=== PATIENT | male | born 1945 | race Caucasian/White ===

== ENCOUNTER 2019-08-12 12:07 | Emergency (ER) | payer MEDICARE, OTHER ==
[~2019-08-12] VITALS: Ht 177.8 cm; Wt 95.0 kg
[~2019-08-12 12:07] MED LIST: ALBU18HF2 INH; ASPI-41 PO; CHLO25TA2 PO; DOCU100C40 PO; HYDR-3972 PO; METO25TA6 PO; PHEN100C12 PO; SIMV-45 PO; SPIIN INH; SPIR50TA5 PO; UREA198C TOP
[2019-08-12 12:21] VITALS: BP 130/81
[2019-08-12] MEDS ORDERED: ketorolac trometh. 30mg/ml inj. IM STA (13:14)
[2019-08-12] MEDS ORDERED: TETanus/Pertussis (Acell)/Diphther VAC/PF (Tdap-Adult) 0.5ml syringe IMVAC ONE (13:15)
== END 2019-08-12 13:56 | disposition home or self-care (01) ==
LOC: ER 12:08
DX: S60.511A Abrasion of right hand, initial encounter (principal); I10 Essential (primary) hypertension; J44.9 Chronic obstructive pulmonary disease, unspecified; Z98.890 Other specified postprocedural states; Z79.82 Long term (current) use of aspirin; Z79.899 Other long term (current) drug therapy; W23.0XXA Caught, crushed, jammed, or pinched between moving objects, initial encounter; Y93.89 Activity, other specified; Y92.89 Other specified places as the place of occurrence of the external cause; Y99.9 Unspecified external cause status
CPT/HCPCS: 73130; 90471; 90715; 96372; 99283; J1885

== ENCOUNTER 2023-04-11 16:38 | Inpatient (IN) | payer OTHER, MEDICARE ==
[~2023-04-11] VITALS: Ht 269.2 cm; Wt 110.0 kg
[~2023-04-11 16:38] MED LIST changes: +LOP25T PO; +MEROPENEM 1GM/NS 100ML IVPB 100 ML IV ONE; -METO25TA6 PO
[2023-04-11 17:12] LABS: BASOPHILS % (AUTO) 0.2 % (0-1); EOSINOPHILS % (AUTO) 0 % (0-6); HEMATOCRIT 39.5 % (42.0-52.0); HEMOGLOBIN 13.3 g/dl (14.0-17.9); LYMPHOCYTES # (AUTO) 0.8 X10'3 (1.1-4.8); LYMPHOCYTES % (AUTO) 4.6 % (21-51); MEAN CORPUSCULAR HEMOGLOBIN 29.5 PG (27.0-31.0); MEAN CORPUSCULAR HGB CONC 33.7 g/dL (33.0-36.5); MEAN CORPUSCULAR VOLUME 87.6 FL (78-98); MEAN PLATELET VOLUME 6.7 FL (7.4-10.4); MONOCYTES # (AUTO) 1.4 X10'3 (0-0.9); MONOCYTES % (AUTO) 8.1 % (2-12); NEUTROPHILS # (AUTO) 15.5 X10'3 (1.8-7.7); NEUTROPHILS % (AUTO) 87.1 % (42-75); PLATELET COUNT 424 X10'3 (140-440); RED BLOOD COUNT 4.51 X10'6 (4.70-6.10); RED CELL DISTRIBUTION WIDTH 17.3 % (11.5-14.5); WHITE BLOOD COUNT 17.8 X10'3 (4.5-11.0)
[2023-04-11 17:18] LABS: ALANINE AMINOTRANSFERASE 13 U/L (12-78); ALBUMIN 2.2 G/DL (3.4-5.0); ALBUMIN/GLOBULIN RATIO 0.4 (1.1-1.5); ALKALINE PHOSPHATASE 64 IU/L (46-116); ANION GAP 6 (8-16); ASPARTATE AMINO TRANSFERASE 24 U/L (10-37); BILIRUBIN,TOTAL 1.4 MG/DL (0.1-1.0); BLOOD UREA NITROGEN 30 MG/DL (7-18); BUN/CREATININE RATIO 21.9 (10.0-20.0); CALCIUM 9.2 MG/DL (8.5-10.1); CHLORIDE 95 MMOL/L (99-107); CREATININE 1.37 MG/DL (0.60-1.10); GLUCOSE 125 MG/DL (70-104); POTASSIUM 3.4 MMOL/L (3.5-5.1); SODIUM 130 MMOL/L (135-145); TOTAL PROTEIN 7.6 G/DL (6.4-8.2); eCRCL 48 ML/MIN; eGFR 51 ML/MIN
[2023-04-11 17:25] LABS: PRO BRAIN NATRIURETIC PEPTIDE 3555 PG/ML (0-450)
[2023-04-11] MEDS ORDERED: acetaminophen 325mg tablet PO ONE ×2 (17:35→18:00)
[2023-04-11] MEDS ORDERED: LIDOcaine 2% 10ml TOPICAL JELLY (Urojet) TP ONE (17:35)
[2023-04-11] MEDS ORDERED: LidoCAINE 2% Topical Jelly 11mL syringe TOP ONE (17:40)
[2023-04-11] MEDS ORDERED: iohexol 350MG/ML 100ml bottle IV ONE (17:42)
--- NOTE | 2023-04-11 17:47 | NUR ---
PICS TAKEN OF WOUNDS TO BLE AND PLACED IN CHART. WOUND CARE CONSULT ORD.
--- NOTE | 2023-04-11 17:47 | NUR ---
PER DR MATTSON RN TO ORD 1GM TYLENOL PO AND PAYTON WITH BLADDER SCAN P/T PLACEMENT.
[2023-04-11 17:55] LABS: AMYLASE 21 U/L (25-115); LIPASE < 50 U/L (73-393)
[2023-04-11 17:59] LABS: APTT 29 SECONDS (22-32); INR 1.1 INR; PROTHROMBIN TIME 11.9 SECONDS (9.0-12.0)
[2023-04-11 18:05] LABS: ABG BASE EXCESS 1.9 mmol/L (-2.0-2.0); ABG HCO3 23.6 mmol/L (22.0-26.0); ABG OXYGEN SATURATION 97.4 % (94-97); ABG PCO2 (T) 30.8 mmHg (35.0-48.0); ABG PH (T) 7.507 (7.340-7.440); ABG PO2 (T) 88.8 mmHg (75.0-100.0); ALLEN'S TEST POSITIVE; FCOHb 1.3 % (0.0-3.9); FHHb 2.6 % (0.0-5.0); FLOW 4 L/min; FMetHb 0.1 % (0.0-1.5); MODE NC; PATIENT TEMPERATURE 38.4
[2023-04-11 18:36] LABS: BILIRUBIN,URINE SMALL (Neg); CLARITY,URINE SLIGHTLY CLOUDY (Clear); GLUCOSE, URINE 100 mg/dl (Neg); KETONES,URINE NEGATIVE (Neg); LEUKOCYTE ESTERASE ,URINE NEGATIVE (Neg); NITRITES, URINE NEGATIVE (Neg); OCCULT BLOOD,URINE MODERATE (Neg); PROTEIN,URINE 100 mg/dl (Neg); UROBILINOGEN,URINE >=8.0 E.U/dL (0.2-1.0)
[2023-04-11 18:37] LABS: COLOR,URINE DARK YELLOW (Yellow); UA COLLECTION TYPE FOLEY CATH
[2023-04-11 18:45] LABS: BACTERIA,URINE FEW /HPF (Neg); WBC,URINE 0-4 /HPF (0-4)
[2023-04-11 18:46] LABS: MUCUS STRANDS FEW /LPF (Neg); SQUAMOUS EPITHELIAL CELL,UR FEW /LPF (FEW); TRANSITIONAL EPI CELLS,URINE FEW /HPF
[2023-04-11] MEDS ORDERED: MEROPENEM 1GM/NS 100ML IVPB 100 ML IV ONE (19:45)
[2023-04-11] MEDS ORDERED: furosemide 10 MG/1 ML 10ml inj IV ONE (19:55)
[2023-04-11] MEDS ORDERED: methylPREDNISolone sod succ 125mg/2ml vial IV ONE (20:00)
[2023-04-11] MEDS ORDERED: potassium Cl 20 mEq SR tablet PO PRN (21:20)
[2023-04-11] MEDS ORDERED: magnesium hydroxide 30ml (MOM) UD suspension PO PRN (21:20)
[2023-04-11] MEDS ORDERED: mag hydrox/Alum hydrox/simeth 30ml oral suspension PO PRN (21:20)
[2023-04-11] MEDS ORDERED: magnesium 4gm in 100ml NS 100 ML IV PRN (21:20)
[2023-04-11] MEDS ORDERED: magnesium Cl slow-release 64mg tablet PO PRN (21:20)
[2023-04-11] MEDS ORDERED: ondansetron/PF 4mg/2ml inj IV PRN (21:20)
[2023-04-11] MEDS ORDERED: magnesium 2GM in 50ml NS 50 ML IV PRN (21:20)
[2023-04-11] MEDS ORDERED: acetaminophen 325mg tablet PO PRN (21:20)
[2023-04-11] MEDS ORDERED: potassium Cl 40MEQ/1/2NS 520ml 520 ML IV PRN (21:20)
[2023-04-11] MEDS ORDERED: PERFLUTREN PROTEIN-A MICROSPHR (Optison) 0.22 MG/ML 3ML VIAL IV PRN (21:20)
[2023-04-11] MEDS ORDERED: albuterol 2.5 MG/3 ML nebule NEB PRN (21:25)
[2023-04-11] MEDS: phenytoin sod ER 100mg capsule PO SCH (21:40)
[2023-04-11 22:02] LABS: PHENYTOIN (DILANTIN) 7.3 UG/ML (10.0-20.0)
[2023-04-11] MEDS: HYDROcodone/acetaminophen 5mg/325mg tablet PO PRN (22:18)
[2023-04-12] VITALS (7 sets, daily range): BP systolic 111–120; BP diastolic 55–87; PULSE 85–99; RESP 16–20; TEMP 97.5–98; O2SAT 93–98
[2023-04-12] MEDS: HYDROcodone/acetaminophen 5mg/325mg tablet PO PRN ×4 (02:58→20:37)
[2023-04-12 06:55] LABS: BASOPHILS % (AUTO) 0.1 % (0-1); EOSINOPHILS % (AUTO) 0 % (0-6); HEMATOCRIT 37.5 % (42.0-52.0); HEMOGLOBIN 12.8 g/dl (14.0-17.9); LYMPHOCYTES # (AUTO) 0.4 X10'3 (1.1-4.8); LYMPHOCYTES % (AUTO) 2.5 % (21-51); MEAN CORPUSCULAR HEMOGLOBIN 30.1 PG (27.0-31.0); MEAN CORPUSCULAR VOLUME 88.5 FL (78-98); MEAN PLATELET VOLUME 6.7 FL (7.4-10.4); MONOCYTES # (AUTO) 1.3 X10'3 (0-0.9); MONOCYTES % (AUTO) 7.3 % (2-12); NEUTROPHILS # (AUTO) 15.5 X10'3 (1.8-7.7); NEUTROPHILS % (AUTO) 90.1 % (42-75); PLATELET COUNT 376 X10'3 (140-440); RED BLOOD COUNT 4.23 X10'6 (4.70-6.10); RED CELL DISTRIBUTION WIDTH 17.5 % (11.5-14.5); WHITE BLOOD COUNT 17.2 X10'3 (4.5-11.0)
[2023-04-12 07:29] LABS: ALANINE AMINOTRANSFERASE 13 U/L (12-78); ALBUMIN 1.8 G/DL (3.4-5.0); ALBUMIN/GLOBULIN RATIO 0.4 (1.1-1.5); ALKALINE PHOSPHATASE 54 IU/L (46-116); ANION GAP 5 (8-16); ASPARTATE AMINO TRANSFERASE 29 U/L (10-37); BLOOD UREA NITROGEN 28 MG/DL (7-18); BUN/CREATININE RATIO 21.9 (10.0-20.0); CALCIUM 8.7 MG/DL (8.5-10.1); CHLORIDE 97 MMOL/L (99-107); CREATININE 1.28 MG/DL (0.60-1.10); GLUCOSE 159 MG/DL (70-104); MAGNESIUM 2.1 MG/DL (1.5-2.4); POTASSIUM 3.7 MMOL/L (3.5-5.1); SODIUM 132 MMOL/L (135-145); TOTAL CARBON DIOXIDE 30.1 MMOL/L (24-32); TOTAL PROTEIN 6.8 G/DL (6.4-8.2); eCRCL 78 ML/MIN; eGFR 55 ML/MIN
[2023-04-12] MEDS: K and/or MAG REPLACEMENT MC SCH ×2 (08:00→20:00)
[2023-04-12] MEDS ORDERED: metoprolol tartrate 50mg tablet PO SCH (08:00)
[2023-04-12] MEDS: furosemide 10 MG/1 ML 10ml inj IV SCH ×2 (08:30→20:38)
[2023-04-12] MEDS: docusate sod 100mg capsule PO SCH ×2 (08:31→20:31)
[2023-04-12] MEDS: heparin, porcine 5000 units/ml vial SQ SCH ×2 (08:31→20:39)
[2023-04-12] MEDS: CefTRIAXone/D5W-Rocephin 1gm 50 ML IV SCH (08:31)
[2023-04-12] MEDS: metoprolol tartrate 25mg tablet PO SCH ×2 (10:15→20:36)
[2023-04-12] MEDS ORDERED: ATOR40TA PO (12:34)
[2023-04-12] MEDS ORDERED: ASPI-611 PO (12:34)
[2023-04-12] MEDS ORDERED: LOP25T PO (12:35)
--- NOTE | 2023-04-12 14:55 | NUR ---
Noted pt with a low BMI of 15.2 using wt of 110 kg which is not scaled. Patient's height has gone from 70" to 96" to 106" this admit. Per ht hx in EMR pt 70-71", therefore BMI is actually 34-35 IF current documented wt is accurate. Addendum: 04/12/23 at [address] Amended: Links added.
--- NOTE | 2023-04-12 16:01 | NUR ---
Message: ROOM [id number] JAREKGTBRANDY FROM ED NEEDS SOMETHING FOR PAIN HAD ONE NORCO IN THE ED PLEASE ORDER SOMETHING MORE FOR HIM HIS LEGS ARE EXCRUCIATING THX - NOMI [id number]
--- NOTE | 2023-04-12 16:28 | NUR ---
PRESSURE ULCER EDUCATION: DEFINITION: A pressure ulcer is an area of skin that breaks down when you stay in one position too long. The constant pressure against the skin reduces the blood flow to that area and the affected tissue dies. CAUSES: "Being bedridden or in a wheelchair "Fragile skin "Having a chronic condition, such as diabetes or vascular disease "Inability to move certain parts of your body without assistance "Older age "Incontinence of urine or stool SYMPTOMS: "A reddened area that DOES NOT turn white when pressed on - this can be the beginning of a pressure ulcer "A blister, deep sore or a crater - these can be advanced pressure ulcers FIRST AID: "Relieve the pressure on this area "Keep the area clean and dry "Call your primary doctor if you see any of the above symptoms "DO NOT massage the area "DO NOT use a donut shaped or ring shaped pillow- these actually interfere with the blood flow and cause complications PREVENTION: "Check for pressure ulcers everyday "Change position at least every two hours to relieve pressure "Use items that help relieve pressure- pillows, sheepskin, foam padding, and powders. "Keep skin clean and dry "Eat healthy well balanced meals "Exercise daily IF YOU SEE ANY OF THESE SYMPTOMS WHILE IN THE HOSPITAL - TELL YOUR NURSE IMMEDIATELY. IF YOU SEE ANY OF THESE SYMPTOMS WHILE AT HOME OR HAVE ANY QUESTIONS OR CONCERNS ABOUT PRESSURE ULCERS - CALL YOUR PRIMARY DOCTOR IMMEDIATELY. Addendum: 04/12/23 at 1628 by Jessenia Kramer LVN Amended: Links added.
--- NOTE | 2023-04-12 16:39 | NUR ---
Message: ROOM [id number] CONCHIS FROM ED NEEDS SOMETHING FOR PAIN HE HAS THE LOWER EXT WOUNDS AND WOUND CARE ATTENDED TO THOSE CAUSING ALOT OF PAIN - HE HAD NORCO IN ED - PLEASE ADVISE - SECOND NOTIFICATION - NOMI TELE [id number]
--- NOTE | 2023-04-12 18:09 | NUR ---
Patient in room PCU 3017. I have received report from Marii MOSQUERA and had the opportunity to ask questions and assume patient care.
[2023-04-12] MEDS: atorvastatin 20mg tablet PO SCH (20:37)
[2023-04-12] MEDS: phenytoin sod ER 100mg capsule PO SCH (20:40)
[2023-04-13] VITALS (18 sets, daily range): BP systolic 95–114; BP diastolic 53–60; PULSE 69–95; RESP 14–18; TEMP 97.5–98.4; O2SAT 89–99
--- NOTE | 2023-04-13 00:47 | NUR ---
Patient medicated for pain x1 with good effect. Requested Rt tmt for SOB. Appears stable at this time. report given to Marii MOSQUERA
[2023-04-13] MEDS: HYDROcodone/acetaminophen 5mg/325mg tablet PO PRN ×4 (01:33→20:11)
[2023-04-13] MEDS: ipratropium 0.5 MG/2.5ML nebule NEB SCH ×2 (03:20→08:57)
[2023-04-13 07:36] LABS: BASOPHILS % (AUTO) 0.3 % (0-1); EOSINOPHILS # (AUTO) 0.1 X10'3 (0-0.9); EOSINOPHILS % (AUTO) 0.7 % (0-6); HEMATOCRIT 37.6 % (42.0-52.0); HEMOGLOBIN 12.7 g/dl (14.0-17.9); LYMPHOCYTES # (AUTO) 0.8 X10'3 (1.1-4.8); LYMPHOCYTES % (AUTO) 7.6 % (21-51); MEAN CORPUSCULAR HEMOGLOBIN 29.9 PG (27.0-31.0); MEAN CORPUSCULAR HGB CONC 33.8 g/dL (33.0-36.5); MEAN CORPUSCULAR VOLUME 88.2 FL (78-98); MEAN PLATELET VOLUME 7.1 FL (7.4-10.4); MONOCYTES # (AUTO) 0.9 X10'3 (0-0.9); MONOCYTES % (AUTO) 9.4 % (2-12); NEUTROPHILS # (AUTO) 8.2 X10'3 (1.8-7.7); PLATELET COUNT 376 X10'3 (140-440); RED BLOOD COUNT 4.26 X10'6 (4.70-6.10); RED CELL DISTRIBUTION WIDTH 17.4 % (11.5-14.5); WHITE BLOOD COUNT 9.9 X10'3 (4.5-11.0)
[2023-04-13 08:03] LABS: ALANINE AMINOTRANSFERASE 16 U/L (12-78); ALBUMIN 1.7 G/DL (3.4-5.0); ALBUMIN/GLOBULIN RATIO 0.4 (1.1-1.5); ALKALINE PHOSPHATASE 48 IU/L (46-116); ANION GAP 3 (8-16); ASPARTATE AMINO TRANSFERASE 66 U/L (10-37); BILIRUBIN,TOTAL 0.9 MG/DL (0.1-1.0); BLOOD UREA NITROGEN 31 MG/DL (7-18); BUN/CREATININE RATIO 27.4 (10.0-20.0); CALCIUM 8.4 MG/DL (8.5-10.1); CHLORIDE 95 MMOL/L (99-107); CREATININE 1.13 MG/DL (0.60-1.10); GLUCOSE 87 MG/DL (70-104); MAGNESIUM 2.1 MG/DL (1.5-2.4); POTASSIUM 3.1 MMOL/L (3.5-5.1); SODIUM 130 MMOL/L (135-145); TOTAL CARBON DIOXIDE 31.6 MMOL/L (24-32); TOTAL PROTEIN 6.3 G/DL (6.4-8.2); eCRCL 88 ML/MIN; eGFR 63 ML/MIN
[2023-04-13] MEDS: aspirin 81mg, enteric-coated 1 TAB TABLET.DR PO SCH (08:34)
[2023-04-13] MEDS: metoprolol tartrate 25mg tablet PO SCH ×2 (08:35→19:53)
[2023-04-13] MEDS: heparin, porcine 5000 units/ml vial SQ SCH ×2 (08:36→19:54)
[2023-04-13] MEDS: docusate sod 100mg capsule PO SCH ×2 (08:37→19:53)
[2023-04-13] MEDS: furosemide 10 MG/1 ML 10ml inj IV SCH ×2 (08:37→19:52)
[2023-04-13] MEDS: CefTRIAXone/D5W-Rocephin 1gm 50 ML IV SCH (08:37)
[2023-04-13] MEDS: K and/or MAG REPLACEMENT MC SCH ×2 (08:38→19:53)
[2023-04-13] MEDS ORDERED: ipratropium/albuterol 3ml nebule NEB PRN (11:50)
[2023-04-13] MEDS ORDERED: lisinopril 10 MG tablet PO ONE (11:50)
[2023-04-13 13:06] LABS: HEMOGLOBIN A1C 5.7 % (4.5-6.2)
[2023-04-13] MEDS: ipratropium/albuterol 3ml nebule NEB SCH ×3 (14:45→23:27)
[2023-04-13] MEDS: methylPREDNISolone sod succ/PF 40mg inj. IV SCH (15:25)
[2023-04-13] MEDS: azithromycin 250mg tablet PO SCH (15:27)
[2023-04-13] MEDS: potassium Cl 20 mEq SR tablet PO PRN (20:07)
[2023-04-13] MEDS: atorvastatin 20mg tablet PO SCH (20:07)
[2023-04-13] MEDS: phenytoin sod ER 100mg capsule PO SCH (20:07)
[2023-04-14] VITALS (10 sets, daily range): BP systolic 93–123; BP diastolic 52–67; PULSE 67–88; RESP 13–26; TEMP 97.5–98.9; O2SAT 93–100
[2023-04-14] MEDS: methylPREDNISolone sod succ/PF 40mg inj. IV SCH ×3 (00:39→18:09)
[2023-04-14] MEDS: HYDROcodone/acetaminophen 5mg/325mg tablet PO PRN ×2 (00:42→20:25)
[2023-04-14] MEDS: potassium Cl 20 mEq SR tablet PO PRN (00:42)
[2023-04-14] MEDS: ipratropium/albuterol 3ml nebule NEB SCH ×5 (03:00→19:28)
[2023-04-14 06:34] LABS: BASOPHILS % (AUTO) 0.1 % (0-1); EOSINOPHILS % (AUTO) 0.1 % (0-6); HEMATOCRIT 37.4 % (42.0-52.0); HEMOGLOBIN 12.8 g/dl (14.0-17.9); LYMPHOCYTES # (AUTO) 0.4 X10'3 (1.1-4.8); LYMPHOCYTES % (AUTO) 4.1 % (21-51); MEAN CORPUSCULAR HEMOGLOBIN 30.1 PG (27.0-31.0); MEAN CORPUSCULAR HGB CONC 34.2 g/dL (33.0-36.5); MEAN CORPUSCULAR VOLUME 88.2 FL (78-98); MEAN PLATELET VOLUME 7.3 FL (7.4-10.4); MONOCYTES # (AUTO) 0.7 X10'3 (0-0.9); MONOCYTES % (AUTO) 8.1 % (2-12); NEUTROPHILS # (AUTO) 7.9 X10'3 (1.8-7.7); NEUTROPHILS % (AUTO) 87.6 % (42-75); PLATELET COUNT 393 X10'3 (140-440); RED BLOOD COUNT 4.25 X10'6 (4.70-6.10); RED CELL DISTRIBUTION WIDTH 16.7 % (11.5-14.5)
--- NOTE | 2023-04-14 06:39 | NUR ---
Problems reprioritized. Patient report given, questions answered & plan of care reviewed with Jinny MOSQUERA. Addendum: 04/14/23 at 0639 by Shawna Warren RN Amended: Links added.
--- NOTE | 2023-04-14 06:47 | NUR ---
Patient in room PCU 3017. I have received report from ronan MOSQUERA and had the opportunity to ask questions and assume patient care.
[2023-04-14 06:59] LABS: ALANINE AMINOTRANSFERASE 31 U/L (12-78); ALBUMIN 1.9 G/DL (3.4-5.0); ALBUMIN/GLOBULIN RATIO 0.4 (1.1-1.5); ALKALINE PHOSPHATASE 53 IU/L (46-116); ANION GAP 2 (8-16); ASPARTATE AMINO TRANSFERASE 81 U/L (10-37); BILIRUBIN,TOTAL 0.7 MG/DL (0.1-1.0); BLOOD UREA NITROGEN 29 MG/DL (7-18); BUN/CREATININE RATIO 25.9 (10.0-20.0); CALCIUM 8.8 MG/DL (8.5-10.1); CHLORIDE 94 MMOL/L (99-107); CHOLESTEROL 113 MG/DL (0-200); CREATININE 1.12 MG/DL (0.60-1.10); GLUCOSE 132 MG/DL (70-104); HDL CHOLESTEROL 28 MG/DL (35-60); LDL CHOLESTEROL 71 MG/DL (50-100); MAGNESIUM 2.4 MG/DL (1.5-2.4); SODIUM 129 MMOL/L (135-145); THYROID STIMULATING HORMONE 0.28 ulU/ml (0.34-4.50); TOTAL CARBON DIOXIDE 32.9 MMOL/L (24-32); TOTAL PROTEIN 6.9 G/DL (6.4-8.2); TRIGLYCERIDES 80 MG/DL (20-135); eCRCL 89 ML/MIN; eGFR 64 ML/MIN
[2023-04-14] MEDS: K and/or MAG REPLACEMENT MC SCH ×2 (08:00→20:00)
[2023-04-14] MEDS: metoprolol tartrate 25mg tablet PO SCH ×2 (08:35→20:11)
[2023-04-14] MEDS: docusate sod 100mg capsule PO SCH ×2 (08:35→20:06)
[2023-04-14] MEDS: azithromycin 250mg tablet PO SCH (08:35)
[2023-04-14] MEDS: lisinopril 10 MG tablet PO SCH (08:36)
[2023-04-14] MEDS: heparin, porcine 5000 units/ml vial SQ SCH ×2 (08:37→20:12)
[2023-04-14] MEDS: furosemide 10 MG/1 ML 10ml inj IV SCH ×2 (08:39→20:14)
[2023-04-14] MEDS: EMPAGLIFLOZIN 10 MG TABLET PO SCH (08:40)
[2023-04-14] MEDS: CefTRIAXone/D5W-Rocephin 1gm 50 ML IV SCH (08:40)
[2023-04-14] MEDS: aspirin 81mg, enteric-coated 1 TAB TABLET.DR PO SCH (08:40)
[2023-04-14] MEDS: atorvastatin 20mg tablet PO SCH (20:06)
[2023-04-14] MEDS: phenytoin sod ER 100mg capsule PO SCH (20:09)
[2023-04-15] VITALS (13 sets, daily range): BP systolic 97–122; BP diastolic 47–61; PULSE 68–97; RESP 16–20; TEMP 97.1–97.6; O2SAT 90–100
[2023-04-15] MEDS: HYDROcodone/acetaminophen 5mg/325mg tablet PO PRN ×3 (01:46→22:20)
[2023-04-15] MEDS: methylPREDNISolone sod succ/PF 40mg inj. IV SCH ×3 (01:47→16:21)
[2023-04-15] MEDS: ipratropium/albuterol 3ml nebule NEB SCH ×7 (02:41→22:58)
--- NOTE | 2023-04-15 06:51 | NUR ---
medicated x1 for acute back pain with good result. wound care done. Restless night. Report given to Virgil MOSQUERA
--- NOTE | 2023-04-15 06:58 | NUR ---
Patient in room PCU 3017. I have received report from Jinny MOSQUERA and had the opportunity to ask questions and assume patient care.
[2023-04-15 07:31] LABS: BASOPHILS % (AUTO) 0.2 % (0-1); EOSINOPHILS % (AUTO) 0.2 % (0-6); HEMATOCRIT 39.3 % (42.0-52.0); HEMOGLOBIN 13.2 g/dl (14.0-17.9); LYMPHOCYTES # (AUTO) 0.6 X10'3 (1.1-4.8); LYMPHOCYTES % (AUTO) 6.9 % (21-51); MEAN CORPUSCULAR HEMOGLOBIN 29.7 PG (27.0-31.0); MEAN CORPUSCULAR HGB CONC 33.6 g/dL (33.0-36.5); MEAN CORPUSCULAR VOLUME 88.3 FL (78-98); MEAN PLATELET VOLUME 7.4 FL (7.4-10.4); MONOCYTES # (AUTO) 0.8 X10'3 (0-0.9); NEUTROPHILS # (AUTO) 7.1 X10'3 (1.8-7.7); NEUTROPHILS % (AUTO) 83.7 % (42-75); PLATELET COUNT 472 X10'3 (140-440); RED BLOOD COUNT 4.45 X10'6 (4.70-6.10); RED CELL DISTRIBUTION WIDTH 17.1 % (11.5-14.5); WHITE BLOOD COUNT 8.5 X10'3 (4.5-11.0)
[2023-04-15 07:37] LABS: ALANINE AMINOTRANSFERASE 63 U/L (12-78); ALBUMIN/GLOBULIN RATIO 0.4 (1.1-1.5); ALKALINE PHOSPHATASE 53 IU/L (46-116); ANION GAP 2 (8-16); ASPARTATE AMINO TRANSFERASE 110 U/L (10-37); BILIRUBIN,TOTAL 0.6 MG/DL (0.1-1.0); BLOOD UREA NITROGEN 27 MG/DL (7-18); BUN/CREATININE RATIO 22.9 (10.0-20.0); CALCIUM 8.7 MG/DL (8.5-10.1); CHLORIDE 94 MMOL/L (99-107); CREATININE 1.18 MG/DL (0.60-1.10); GLUCOSE 133 MG/DL (70-104); MAGNESIUM 2.5 MG/DL (1.5-2.4); POTASSIUM 3.8 MMOL/L (3.5-5.1); SODIUM 130 MMOL/L (135-145); TOTAL PROTEIN 7.1 G/DL (6.4-8.2); eCRCL 84 ML/MIN; eGFR 60 ML/MIN
[2023-04-15] MEDS: K and/or MAG REPLACEMENT MC SCH ×2 (08:00→20:00)
[2023-04-15] MEDS: EMPAGLIFLOZIN 10 MG TABLET PO SCH (08:51)
[2023-04-15] MEDS: azithromycin 250mg tablet PO SCH (08:52)
[2023-04-15] MEDS: docusate sod 100mg capsule PO SCH ×2 (08:52→22:20)
[2023-04-15] MEDS: aspirin 81mg, enteric-coated 1 TAB TABLET.DR PO SCH (08:52)
[2023-04-15] MEDS: heparin, porcine 5000 units/ml vial SQ SCH ×2 (09:03→22:34)
[2023-04-15] MEDS: furosemide 10 MG/1 ML 10ml inj IV SCH (09:06)
[2023-04-15] MEDS: CefTRIAXone/D5W-Rocephin 1gm 50 ML IV SCH (09:22)
[2023-04-15] MEDS: lisinopril 10 MG tablet PO SCH (11:45)
[2023-04-15] MEDS: metoprolol tartrate 25mg tablet PO SCH ×2 (11:45→20:00)
--- NOTE | 2023-04-15 14:29 | NUR ---
PAGER ID: [phone] MESSAGE: Virgil scott re: [id number] Noa Ford patient is back from [facility] is it okay if we start a heart healthy diet.
--- NOTE | 2023-04-15 18:33 | NUR ---
Problems reprioritized. Patient report given, questions answered & plan of care reviewed with Kristine MOSQUERA.
[2023-04-15] MEDS: furosemide 40mg/4ml inj IV SCH (20:00)
[2023-04-15] MEDS ORDERED: tamsulosin 0.4mg capsule PO SCH (21:00)
[2023-04-15] MEDS: atorvastatin 20mg tablet PO SCH (22:20)
[2023-04-15] MEDS: phenytoin sod ER 100mg capsule PO SCH (22:22)
[2023-04-16] VITALS (9 sets, daily range): BP systolic 101–117; BP diastolic 46–62; PULSE 48–79; RESP 16–18; TEMP 97.7–98.6; O2SAT 93–100
[2023-04-16] MEDS: methylPREDNISolone sod succ/PF 40mg inj. IV SCH (00:17)
[2023-04-16] MEDS: ipratropium/albuterol 3ml nebule NEB SCH ×4 (03:00→14:38)
--- NOTE | 2023-04-16 06:42 | NUR ---
Patient in room PCU 3017. I have received report from Kristine MOSQUERA and had the opportunity to ask questions and assume patient care.
--- NOTE | 2023-04-16 06:43 | NUR ---
Problems reprioritized. Patient report given, questions answered & plan of care reviewed with EVELINE Herman.
[2023-04-16 07:04] LABS: BASOPHILS % (AUTO) 0.1 % (0-1); EOSINOPHILS % (AUTO) 0.3 % (0-6); HEMATOCRIT 40.1 % (42.0-52.0); HEMOGLOBIN 13.4 g/dl (14.0-17.9); LYMPHOCYTES # (AUTO) 0.8 X10'3 (1.1-4.8); MEAN CORPUSCULAR HEMOGLOBIN 29.8 PG (27.0-31.0); MEAN CORPUSCULAR HGB CONC 33.5 g/dL (33.0-36.5); MEAN CORPUSCULAR VOLUME 89.1 FL (78-98); MEAN PLATELET VOLUME 7.1 FL (7.4-10.4); MONOCYTES % (AUTO) 10.1 % (2-12); NEUTROPHILS # (AUTO) 8.1 X10'3 (1.8-7.7); NEUTROPHILS % (AUTO) 81.5 % (42-75); PLATELET COUNT 509 X10'3 (140-440); RED CELL DISTRIBUTION WIDTH 16.8 % (11.5-14.5); WHITE BLOOD COUNT 9.9 X10'3 (4.5-11.0)
[2023-04-16 07:10] LABS: ALANINE AMINOTRANSFERASE 66 U/L (12-78); ALBUMIN 2.1 G/DL (3.4-5.0); ALBUMIN/GLOBULIN RATIO 0.4 (1.1-1.5); ALKALINE PHOSPHATASE 53 IU/L (46-116); ANION GAP 4 (8-16); ASPARTATE AMINO TRANSFERASE 85 U/L (10-37); BILIRUBIN,TOTAL 0.5 MG/DL (0.1-1.0); BLOOD UREA NITROGEN 25 MG/DL (7-18); BUN/CREATININE RATIO 21.9 (10.0-20.0); CALCIUM 8.8 MG/DL (8.5-10.1); CHLORIDE 93 MMOL/L (99-107); CREATININE 1.14 MG/DL (0.60-1.10); GLUCOSE 120 MG/DL (70-104); SODIUM 130 MMOL/L (135-145); TOTAL CARBON DIOXIDE 33.4 MMOL/L (24-32); eCRCL 87 ML/MIN; eGFR 63 ML/MIN
[2023-04-16] MEDS: K and/or MAG REPLACEMENT MC SCH (08:00)
[2023-04-16] MEDS ORDERED: methylPREDNISolone sod succ/PF 40mg inj. IV SCH (08:00)
[2023-04-16] MEDS: furosemide 40mg/4ml inj IV SCH (08:11)
[2023-04-16] MEDS: heparin, porcine 5000 units/ml vial SQ SCH (08:11)
[2023-04-16] MEDS: aspirin 81mg, enteric-coated 1 TAB TABLET.DR PO SCH (08:12)
[2023-04-16] MEDS: docusate sod 100mg capsule PO SCH (08:12)
[2023-04-16] MEDS: EMPAGLIFLOZIN 10 MG TABLET PO SCH (08:12)
[2023-04-16] MEDS: CefTRIAXone/D5W-Rocephin 1gm 50 ML IV SCH ×2 (08:13→08:48)
[2023-04-16] MEDS: metoprolol tartrate 25mg tablet PO SCH (11:09)
[2023-04-16] MEDS: lisinopril 10 MG tablet PO SCH (11:09)
--- NOTE | 2023-04-16 11:51 | NUR ---
[place] Cruz catheter removed at 1145. Will monitor for urinary retention. Addendum: 04/16/23 at [address] RN patient voided at the 1220 time of 50cc and was found to have 26 PVR after bladder scanning
[2023-04-16] MEDS ORDERED: ACET-1008 PO (12:47)
[2023-04-16] MEDS ORDERED: EMPA10TA PO (12:47)
[2023-04-16] MEDS ORDERED: LISI10TA27 PO (12:47)
[2023-04-16] MEDS ORDERED: tamsulosin capsule PO (12:47)
[2023-04-16] MEDS ORDERED: FURO-150 PO (12:47)
[2023-04-16] MEDS ORDERED: PRED10TA PO (12:47)
--- NOTE | 2023-04-16 17:11 | NUR ---
Patient discharged in room, IV taken out at this time canula was whole and intact upon inspection. Patient education done with patient in the room verbally Patient expressed verbal understanding of new medications and dressing changes at discharge. patient also educated on when to seek medical attention pertaining to urinary retention. Patient was sent with materials for dressing change and one dose of tamsulosin for tonight until medication are processed at [facility] in the AM. Patient taken down to private vehicle via wheelchair with all belongings.
--- NOTE | 2023-04-16 18:15 | NUR ---
Student documentation: I have reviewed and agree with assessments performed and documented by Niles MI.
--- NOTE | 2023-04-16 18:16 | NUR ---
Student Medication Administration: For this medication-pass time frame, all medication were reviewed, dispensed, administered and documented per hospital policy by Niles MI.
== END 2023-04-16 16:51 | disposition home health service (06) | DRG 682 ==
LOC: ER 16:39 → ED HOLD 21:21 → EDBEDREQ 04-12 13:15 → PCU 3S 04-12 14:30
PROVIDERS: ADMIT Internal Medicine; ATTEND Family Medicine
PROC: B32T1ZZ Computerized Tomography (CT Scan) of Left Pulmonary Artery using Low Osmolar Contrast (ICD-10-PCS; principal; 2023-04-11)
PROC: B3201ZZ Computerized Tomography (CT Scan) of Thoracic Aorta using Low Osmolar Contrast (ICD-10-PCS; 2023-04-11)
PROC: B32S1ZZ Computerized Tomography (CT Scan) of Right Pulmonary Artery using Low Osmolar Contrast (ICD-10-PCS; 2023-04-11)
PROC: B4201ZZ Computerized Tomography (CT Scan) of Abdominal Aorta using Low Osmolar Contrast (ICD-10-PCS; 2023-04-11)
PROC: B4241ZZ Computerized Tomography (CT Scan) of Superior Mesenteric Artery using Low Osmolar Contrast (ICD-10-PCS; 2023-04-11)
PROC: B4281ZZ Computerized Tomography (CT Scan) of Bilateral Renal Arteries using Low Osmolar Contrast (ICD-10-PCS; 2023-04-11)
PROC: B42C1ZZ Computerized Tomography (CT Scan) of Pelvic Arteries using Low Osmolar Contrast (ICD-10-PCS; 2023-04-11)
PROC: B42H1ZZ Computerized Tomography (CT Scan) of Bilateral Lower Extremity Arteries using Low Osmolar Contrast (ICD-10-PCS; 2023-04-11)
PROC: B4211ZZ Computerized Tomography (CT Scan) of Celiac Artery using Low Osmolar Contrast (ICD-10-PCS; 2023-04-11)
DX: N17.9 Acute kidney failure, unspecified (principal); I50.23 Acute on chronic systolic (congestive) heart failure; J96.01 Acute respiratory failure with hypoxia; J44.1 Chronic obstructive pulmonary disease with (acute) exacerbation; I11.0 Hypertensive heart disease with heart failure; E11.9 Type 2 diabetes mellitus without complications; G89.29 Other chronic pain; M54.9 Dorsalgia, unspecified; F17.200 Nicotine dependence, unspecified, uncomplicated; M47.9 Spondylosis, unspecified; I25.10 Atherosclerotic heart disease of native coronary artery without angina pectoris; Z20.822 Contact with and (suspected) exposure to COVID-19; G40.909 Epilepsy, unspecified, not intractable, without status epilepticus; E87.6 Hypokalemia; R33.9 Retention of urine, unspecified; Z95.1 Presence of aortocoronary bypass graft; Z80.0 Family history of malignant neoplasm of digestive organs; Z83.3 Family history of diabetes mellitus
CPT/HCPCS: 36415; 36600; 71045; 71275; 74177; 76770; 80053; 80061; 80185; 81001; 82150; 82803; 82948; 83036; 83605; 83690; 83735; 83880; 84145; 84443; 84484; 85018; 85025; 85610; 85730; 87040; 87081; 87811; 93005; 93306; 94640; 94760; 97116; 97530; 99285; A4615; A5200; A6250; A6253; A6260; A6446; A6449; C1758; G0378; J0696; J1644; J1940; J2185; J2920; J2930; J3490; J7040; Q9967

== ENCOUNTER 2024-09-03 16:29 | Inpatient (IN) | payer OTHER, MEDICARE ==
[~2024-09-03] VITALS: Ht 180.3 cm; Wt 102.1 kg
[~2024-09-03 16:29] MED LIST changes: +ACET-1008 PO; -ASPI-41 PO; +ASPI-611 PO; +ATOR40TA PO; -CHLO25TA2 PO; -DOCU100C40 PO; +EMPA10TA PO; +FURO-150 PO; -HYDR-3972 PO; +LISI10TA27 PO; -MEROPENEM 1GM/NS 100ML IVPB 100 ML IV ONE; +PRED10TA PO; -SIMV-45 PO; -UREA198C TOP; +tamsulosin capsule PO
[2024-09-03] MEDS: ipratropium/albuterol 3ml nebule NEB ONE (17:31)
[2024-09-03 17:33] VITALS: PULSE 77; PULSE 85; RESP 19; RESP 20; O2SAT 95; O2SAT 97
[2024-09-03 17:59] LABS: BASOPHILS # (AUTO) 0.1 X10'3 (0-0.2); BASOPHILS % (AUTO) 0.9 % (0-1); EOSINOPHILS # (AUTO) 0.2 X10'3 (0-0.9); EOSINOPHILS % (AUTO) 2.8 % (0-6); HEMATOCRIT 48.2 % (42.0-52.0); LYMPHOCYTES # (AUTO) 0.7 X10'3 (1.1-4.8); LYMPHOCYTES % (AUTO) 8.2 % (21-51); MEAN CORPUSCULAR HEMOGLOBIN 29.3 PG (27.0-31.0); MEAN CORPUSCULAR HGB CONC 33.2 g/dL (33.0-36.5); MEAN CORPUSCULAR VOLUME 88.3 FL (78-98); MEAN PLATELET VOLUME 7.8 FL (7.4-10.4); MONOCYTES # (AUTO) 0.8 X10'3 (0-0.9); MONOCYTES % (AUTO) 9.5 % (2-12); NEUTROPHILS # (AUTO) 6.7 X10'3 (1.8-7.7); NEUTROPHILS % (AUTO) 78.6 % (42-75); PLATELET COUNT 555 X10'3 (140-440); RED BLOOD COUNT 5.46 X10'6 (4.70-6.10); RED CELL DISTRIBUTION WIDTH 19.4 % (11.5-14.5); WHITE BLOOD COUNT 8.5 X10'3 (4.5-11.0)
[2024-09-03] MEDS: azithromycin/NS 500mg/250ml 250 ML IV ONE (18:25)
[2024-09-03 18:34] LABS: ALANINE AMINOTRANSFERASE 10 U/L (12-78); ALBUMIN 2.8 G/DL (3.4-5.0); ALBUMIN/GLOBULIN RATIO 0.5 (1.1-1.5); ALKALINE PHOSPHATASE 165 IU/L (46-116); ANION GAP 7 (8-16); ASPARTATE AMINO TRANSFERASE 35 U/L (10-37); BILIRUBIN,TOTAL 1.5 MG/DL (0.1-1.0); BLOOD UREA NITROGEN 9 MG/DL (7-18); BUN/CREATININE RATIO 9.8 (10.0-20.0); CALCIUM 9.2 MG/DL (8.5-10.1); CHLORIDE 99 MMOL/L (99-107); CREATININE 0.92 MG/DL (0.60-1.10); GLUCOSE 92 MG/DL (70-104); POTASSIUM 3.7 MMOL/L (3.5-5.1); SODIUM 136 MMOL/L (135-145); TOTAL CARBON DIOXIDE 30.4 MMOL/L (24-32); TOTAL PROTEIN 8.4 G/DL (6.4-8.2); eCRCL 73 ML/MIN; eGFR 80 ML/MIN
[2024-09-03 18:37] LABS: MAGNESIUM 2.2 MG/DL (1.5-2.4); PRO BRAIN NATRIURETIC PEPTIDE 3522 PG/ML (0-450)
[2024-09-03] MEDS ORDERED: iohexol 300mg/ml 100ml inj. ONE (18:47)
[2024-09-03 18:50] LABS: ANISOCYTOSIS 2+; PLATELET ESTIMATE INCREASED
[2024-09-03 18:51] LABS: TEAR DROP CELLS 1+
[2024-09-03 18:52] LABS: ELLIPTOCYTES FEW
[2024-09-03] MEDS: CefTRIAXone 2gm/D5W 50ml BAG 50 ML IV ONE (19:58)
[2024-09-03] MEDS ORDERED: magnesium Cl slow-release 64mg tablet PO PRN (20:25)
[2024-09-03] MEDS ORDERED: acetaminophen 325mg tablet PO PRN (20:25)
[2024-09-03] MEDS ORDERED: HYDROmorphone/PF 0.2 MG/ML SYRINGE IV PRN (20:25)
[2024-09-03] MEDS ORDERED: potassium Cl 40MEQ/1/2NS 520ml 520 ML IV PRN (20:25)
[2024-09-03] MEDS ORDERED: magnesium sulf-water 2g/50mL 50 ML IV PRN (20:25)
[2024-09-03] MEDS ORDERED: magnesium sulf-water 4G/100mL 100 ML IV PRN (20:25)
[2024-09-03] MEDS ORDERED: albuterol 2.5 MG/3 ML nebule NEB PRN (20:25)
[2024-09-03] MEDS ORDERED: magnesium hydroxide 30ml (MOM) UD suspension PO PRN (20:25)
[2024-09-03] MEDS ORDERED: potassium Cl 20 mEq SR tablet PO PRN ×2 (20:25)
[2024-09-03] MEDS ORDERED: mag hydrox/Alum hydrox/simeth 30ml oral suspension PO PRN (20:25)
[2024-09-03] MEDS ORDERED: HYDROcodone/acetaminophen 5mg/325mg tablet PO PRN (20:25)
[2024-09-03 20:26] LABS: BILIRUBIN,URINE NEGATIVE (Neg); CLARITY,URINE CLEAR (Clear); COLOR,URINE YELLOW (Yellow); GLUCOSE, URINE >=1000 mg/dl (Neg); KETONES,URINE NEGATIVE (Neg); LEUKOCYTE ESTERASE ,URINE NEGATIVE (Neg); NITRITES, URINE NEGATIVE (Neg); OCCULT BLOOD,URINE NEGATIVE (Neg); PH,URINE 5.5 (4.8-8.0); PROTEIN,URINE NEGATIVE (Neg)
[2024-09-03 20:27] LABS: UA COLLECTION TYPE URINAL
[2024-09-03 20:37] LABS: BACTERIA,URINE NONE SEEN /HPF (Neg); RBC,URINE NONE SEEN /HPF (0-2); SQUAMOUS EPITHELIAL CELL,UR FEW /LPF (FEW); WBC,URINE NONE SEEN /HPF (0-4)
[2024-09-03 20:59] LABS: APTT 34 SECONDS (22-32); INR 1.3 INR; PROTHROMBIN TIME 13.2 SECONDS (9.0-12.0)
[2024-09-03] MEDS: ipratropium/albuterol 3ml nebule NEB PRN (21:03)
[2024-09-03 21:04] VITALS: PULSE 86; RESP 26; O2SAT 96
[2024-09-03 21:13] VITALS: PULSE 86; RESP 25
[2024-09-03] MEDS: furosemide 10 MG/1 ML 10ml inj IV SCH (22:39)
[2024-09-03] MEDS: enoxaparin 40mg/0.4ml syringe SUBCUT SCH (22:41)
[2024-09-04] VITALS (17 sets, daily range): BP systolic 95–147; BP diastolic 47–105; PULSE 72–100; RESP 14–24; TEMP 97.6–97.8; O2SAT 86–97
[2024-09-04] MEDS ORDERED: CHOL500049 PO (02:19)
[2024-09-04] MEDS ORDERED: SACU1TAB PO (02:19)
[2024-09-04] MEDS: furosemide 10 MG/1 ML 10ml inj IV SCH (03:06)
[2024-09-04] MEDS: methylPREDNISolone sod succ/PF 40mg inj. IV SCH (03:13)
[2024-09-04] MEDS: morphine 2 MG/ML inj. syringe IV PRN (03:48)
[2024-09-04] MEDS: ondansetron/PF 4mg/2ml inj IV PRN (03:48)
[2024-09-04 07:37] LABS: BASOPHILS # (AUTO) 0.1 X10'3 (0-0.2); LYMPHOCYTES # (AUTO) 0.2 X10'3 (1.1-4.8); MONOCYTES # (AUTO) 0.4 X10'3 (0-0.9)
[2024-09-04 07:39] LABS: BASOPHILS % (AUTO) 0.6 % (0-1); EOSINOPHILS % (AUTO) 0.1 % (0-6); HEMATOCRIT 46.9 % (42.0-52.0); HEMOGLOBIN 15.5 g/dl (14.0-17.9); LYMPHOCYTES % (AUTO) 1.9 % (21-51); MEAN CORPUSCULAR HEMOGLOBIN 29.1 PG (27.0-31.0); MEAN CORPUSCULAR VOLUME 88.3 FL (78-98); MEAN PLATELET VOLUME 7.8 FL (7.4-10.4); NEUTROPHILS % (AUTO) 93.4 % (42-75); PLATELET COUNT 591 X10'3 (140-440); RED BLOOD COUNT 5.31 X10'6 (4.70-6.10); RED CELL DISTRIBUTION WIDTH 18.3 % (11.5-14.5); WHITE BLOOD COUNT 9.6 X10'3 (4.5-11.0)
[2024-09-04 07:58] LABS: ALANINE AMINOTRANSFERASE 7 U/L (12-78); ALBUMIN 2.5 G/DL (3.4-5.0); ALBUMIN/GLOBULIN RATIO 0.5 (1.1-1.5); ALKALINE PHOSPHATASE 149 IU/L (46-116); ANION GAP 9 (8-16); ASPARTATE AMINO TRANSFERASE 31 U/L (10-37); BILIRUBIN,TOTAL 1.8 MG/DL (0.1-1.0); BLOOD UREA NITROGEN 10 MG/DL (7-18); BUN/CREATININE RATIO 9.1 (10.0-20.0); CHLORIDE 98 MMOL/L (99-107); GLUCOSE 134 MG/DL (70-104); MAGNESIUM 1.9 MG/DL (1.5-2.4); POTASSIUM 3.8 MMOL/L (3.5-5.1); SODIUM 135 MMOL/L (135-145); TOTAL PROTEIN 7.8 G/DL (6.4-8.2); eCRCL 61 ML/MIN; eGFR 65 ML/MIN
[2024-09-04] MEDS: docusate sod 100mg capsule PO SCH (08:00)
[2024-09-04] MEDS: K and/or MAG REPLACEMENT MC SCH (08:00)
[2024-09-04] MEDS: CefTRIAXone/D5W-Rocephin 1gm 50 ML IV SCH (08:05)
[2024-09-04] MEDS: azithromycin/NS 500mg/250ml 250 ML IV SCH (08:06)
[2024-09-04] MEDS ORDERED: gelatin sponge, absorbable (Gelfoam 12-7MM) sponge TP ONE (14:34)
[2024-09-04] MEDS ORDERED: fentaNYL/PF 50MCG/1 ML 2ML syringe ONE (14:34)
[2024-09-04] MEDS ORDERED: LIDOcaine 1% (10mg/ml) 2ml vial ONE (14:34)
[2024-09-04] MEDS ORDERED: midazolam 1 mg/ML 2ml injection ONE (14:35)
[2024-09-05] VITALS (16 sets, daily range): BP systolic 113–136; BP diastolic 51–88; PULSE 74–93; RESP 15–27; TEMP 97.3–97.7; O2SAT 91–97
[2024-09-05 07:00] LABS: HEMOGLOBIN 15.4 g/dl (14.0-17.9); LYMPHOCYTES # (AUTO) 0.5 X10'3 (1.1-4.8); MONOCYTES # (AUTO) 1.2 X10'3 (0-0.9)
[2024-09-05 07:03] LABS: BASOPHILS % (AUTO) 0.4 % (0-1); EOSINOPHILS % (AUTO) 0.4 % (0-6); HEMATOCRIT 46.6 % (42.0-52.0); LYMPHOCYTES % (AUTO) 5.3 % (21-51); MEAN CORPUSCULAR VOLUME 87.8 FL (78-98); MEAN PLATELET VOLUME 7.8 FL (7.4-10.4); MONOCYTES % (AUTO) 12.5 % (2-12); NEUTROPHILS # (AUTO) 7.6 X10'3 (1.8-7.7); NEUTROPHILS % (AUTO) 81.4 % (42-75); PLATELET COUNT 547 X10'3 (140-440); RED CELL DISTRIBUTION WIDTH 18.4 % (11.5-14.5); WHITE BLOOD COUNT 9.4 X10'3 (4.5-11.0)
[2024-09-05 07:16] LABS: ALANINE AMINOTRANSFERASE 8 U/L (12-78); ALBUMIN 2.5 G/DL (3.4-5.0); ALBUMIN/GLOBULIN RATIO 0.5 (1.1-1.5); ALKALINE PHOSPHATASE 134 IU/L (46-116); ANION GAP 7 (8-16); ASPARTATE AMINO TRANSFERASE 35 U/L (10-37); BILIRUBIN,TOTAL 1.5 MG/DL (0.1-1.0); BLOOD UREA NITROGEN 17 MG/DL (7-18); BUN/CREATININE RATIO 15.2 (10.0-20.0); CALCIUM 9.4 MG/DL (8.5-10.1); CHLORIDE 98 MMOL/L (99-107); CREATININE 1.12 MG/DL (0.60-1.10); GLUCOSE 95 MG/DL (70-104); MAGNESIUM 2.1 MG/DL (1.5-2.4); POTASSIUM 3.8 MMOL/L (3.5-5.1); SODIUM 136 MMOL/L (135-145); TOTAL CARBON DIOXIDE 31.1 MMOL/L (24-32); TOTAL PROTEIN 7.8 G/DL (6.4-8.2); eCRCL 60 ML/MIN; eGFR 64 ML/MIN
[2024-09-05] MEDS: EMPAGLIFLOZIN 10 MG TABLET PO SCH (08:34)
[2024-09-05] MEDS: aspirin 81mg, enteric-coated 1 TAB TABLET.DR PO SCH (08:34)
[2024-09-05] MEDS: metoprolol tartrate 25mg tablet PO SCH (08:34)
[2024-09-05] MEDS: spironolactone 50 MG tablet PO SCH (08:54)
[2024-09-05] MEDS: sacubitril/valsartan 24mg-26mg tablet PO SCH (08:54)
[2024-09-05] MEDS ORDERED: AZIT500T9 PO (13:50)
[2024-09-05] MEDS ORDERED: CEFD300C3 PO (13:50)
[2024-09-05] MEDS ORDERED: tamsulosin 0.4mg capsule PO SCH (21:00)
[2024-09-05] MEDS ORDERED: atorvastatin 20mg tablet PO SCH (21:00)
[2024-09-05] MEDS ORDERED: phenytoin sod ER 100mg capsule PO SCH (21:00)
== END 2024-09-05 14:56 | disposition home or self-care (01) | DRG 291 ==
LOC: ER 16:30 → ED HOLD 20:39 → PCU 3S 09-04 12:08
PROVIDERS: ADMIT Internal Medicine Sleep Medicine; ATTEND Internal Medicine
PROC: BW241ZZ Computerized Tomography (CT Scan) of Chest and Abdomen using Low Osmolar Contrast (ICD-10-PCS; 2024-09-03)
PROC: 0BBL3ZX Excision of Left Lung, Percutaneous Approach, Diagnostic (ICD-10-PCS; principal; 2024-09-04)
PROC: 0WB83ZX Excision of Chest Wall, Percutaneous Approach, Diagnostic (ICD-10-PCS; 2024-09-05)
DX: I50.23 Acute on chronic systolic (congestive) heart failure (principal); J96.01 Acute respiratory failure with hypoxia; J44.1 Chronic obstructive pulmonary disease with (acute) exacerbation; R91.8 Other nonspecific abnormal finding of lung field; J44.9 Chronic obstructive pulmonary disease, unspecified; Z20.822 Contact with and (suspected) exposure to COVID-19; E11.51 Type 2 diabetes mellitus with diabetic peripheral angiopathy without gangrene; G40.909 Epilepsy, unspecified, not intractable, without status epilepticus; Z79.82 Long term (current) use of aspirin; Z79.899 Other long term (current) drug therapy; Z95.1 Presence of aortocoronary bypass graft
CPT/HCPCS: 20206; 32408; 36415; 71045; 71260; 76536; 76942; 77012; 80053; 81001; 83605; 83735; 83880; 84145; 84484; 85008; 85025; 85610; 85730; 87040; 87081; 87502; 87503; 87811; 93005; 93306; 94640; 94760; 97116; 97161; 97530; 99285; A4615; A6196; A6253; A6446; A6590; G0378; J0456; J0696; J1650; J1940; J2003; J2250; J2270; J2405; J2919; J3010; J7040; Q9967

== ENCOUNTER 2024-09-17 13:41 | Emergency (ER) | payer OTHER, MEDICARE ==
[~2024-09-17] VITALS: Ht 182.9 cm; Wt 86.0 kg
[~2024-09-17 13:41] MED LIST changes: +AZIT500T9 PO; +CHOL500049 PO; -LISI10TA27 PO; +SACU1TAB PO
[2024-09-17 14:06] LABS: BASOPHILS # (AUTO) 0.1 X10'3 (0-0.2); EOSINOPHILS # (AUTO) 0.2 X10'3 (0-0.9); LYMPHOCYTES # (AUTO) 0.4 X10'3 (1.1-4.8); MONOCYTES # (AUTO) 0.9 X10'3 (0-0.9); NEUTROPHILS # (AUTO) 7.8 X10'3 (1.8-7.7)
[2024-09-17 14:08] LABS: BASOPHILS % (AUTO) 1.1 % (0-1); EOSINOPHILS % (AUTO) 1.9 % (0-6); HEMATOCRIT 50.2 % (42.0-52.0); HEMOGLOBIN 16.7 g/dl (14.0-17.9); LYMPHOCYTES % (AUTO) 4.2 % (21-51); MEAN CORPUSCULAR HEMOGLOBIN 29.3 PG (27.0-31.0); MEAN CORPUSCULAR HGB CONC 33.2 g/dL (33.0-36.5); MEAN CORPUSCULAR VOLUME 88.4 FL (78-98); MEAN PLATELET VOLUME 7.5 FL (7.4-10.4); NEUTROPHILS % (AUTO) 82.8 % (42-75); PLATELET COUNT 544 X10'3 (140-440); RED BLOOD COUNT 5.68 X10'6 (4.70-6.10); RED CELL DISTRIBUTION WIDTH 18.2 % (11.5-14.5); WHITE BLOOD COUNT 9.4 X10'3 (4.5-11.0)
[2024-09-17] MEDS ORDERED: iohexol 350MG/ML 100ml bottle IV ONE (14:09)
[2024-09-17] MEDS ORDERED: iohexol 300 MG/1 ML 50ml polymer ONE (14:09)
[2024-09-17 14:14] LABS: ALBUMIN 2.7 G/DL (3.4-5.0); ANION GAP 7 (8-16); BLOOD UREA NITROGEN 12 MG/DL (7-18); BUN/CREATININE RATIO 12.9 (10.0-20.0); CALCIUM 9.7 MG/DL (8.5-10.1); CHLORIDE 100 MMOL/L (99-107); CREATININE 0.93 MG/DL (0.60-1.10); GLUCOSE 78 MG/DL (70-104); POTASSIUM 3.9 MMOL/L (3.5-5.1); SODIUM 136 MMOL/L (135-145); TOTAL CARBON DIOXIDE 28.8 MMOL/L (24-32); eCRCL 74 ML/MIN; eGFR 79 ML/MIN
[2024-09-17 14:20] LABS: APTT 32 SECONDS (22-32); INR 1.4 INR; PROTHROMBIN TIME 14.6 SECONDS (9.0-12.0)
[2024-09-17 14:40] VITALS: TEMP 98.4
[2024-09-17] MEDS: niCARDipine-NS 40mg/200ml IVPB 200 ML IV SCH (14:42)
[2024-09-17] MEDS ORDERED: tranexamic acid inj. 1,000 MG in normal saline 100ml IV soln 90 ML IV ONE (16:00)
[2024-09-17] MEDS: dexamethasone sod phosphate 10mg/ml inj IV STA (16:10)
[2024-09-17] MEDS: tranexamic acid 1gm/0.7% sal. 100 ML IV ONE (16:16)
[2024-09-17 16:19] VITALS: BP 121/65; PULSE 82; RESP 21; O2SAT 94
== END 2024-09-17 16:19 | disposition short-term general hospital (02) ==
LOC: ER 13:41
DX: I62.9 Nontraumatic intracranial hemorrhage, unspecified (principal); E11.9 Type 2 diabetes mellitus without complications; I16.1 Hypertensive emergency; C79.31 Secondary malignant neoplasm of brain; C78.02 Secondary malignant neoplasm of left lung; C78.01 Secondary malignant neoplasm of right lung; I48.91 Unspecified atrial fibrillation; F17.200 Nicotine dependence, unspecified, uncomplicated; J44.9 Chronic obstructive pulmonary disease, unspecified; Z95.1 Presence of aortocoronary bypass graft
CPT/HCPCS: 70450; 71045; 71250; 80048; 85025; 85610; 85730; 93005; 96365; 96366; 96367; 96375; 99291; 99292; J1100; J3490; 99285; Q9967